=== PATIENT | male | born 1940 | race Caucasian/White ===

== ENCOUNTER 2017-04-03 06:13 | Day surgery (SDC) | payer OTHER ==
[~2017-04-03] VITALS: Ht 182.9 cm; Wt 69.4 kg
--- NOTE | ~2017-04-03 | O ---
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 PROCEDURE: Right lower lid ectropion repair with transconjunctival right lower lid and cheek lift. SURGEON: Andre Robertson M.D. LOBBY CONCIERGE: None. ANESTHESIA: MAC. COMPLICATIONS: None. 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 He presents today for a right lower lid ectropion repair combined with transconjunctival right lower lid and cheek lift in order to attempt to improve his ocular surface milieu. Informed consent was obtained to include but not limited to potential risk for loss of vision, bleeding, infection, failure to improve the problem, and the potential need for further surgery or treatment. DESCRIPTION OF PROCEDURE: The patient was taken to the operating room where 2% Xylocaine with epinephrine mixed with equal parts of 0.75% Marcaine with Wydase was administered transcutaneously and transconjunctivally to the right lateral canthus, the right lower lid, the right cheek and the right temporal fossa. The patient was subsequently prepped and draped in the usual sterile fashion. The right lateral canthus was then clamped with a Tay clamp. A sharp canthotomy and cantholysis was subsequently performed. Hemostasis was then re-achieved with diligent pinpoint monopolar cautery. A tarsal strip was then prepared laterally removing the lash bearing portion of the redundant lid margin [address] [address] OPERATIVE REPORT Name: HELDER PRESSLEY Room #: 150-11 [facility]#: [id number] Admission: 04/03/17 Attend Phys: Andre Robertson MD Discharge: Date of : 42 Report #: [id number] and the redundant tarsal plate. A transconjunctival incision was then made below the inferior border of the tarsal plate across the lower lid. The dissection was then carried down in a sharp fashion onto the premalar surface. Hemostasis was then re-achieved. The lower lid and cheek tissues were then elevated and resuspended with interrupted double armed chromic passes. This lifted the lower lid and cheek well. Attention was then returned to completion of the ectropion repair. The tarsal strip was secured to the internal portion of the lateral orbital tubercle with interrupted 5-0 Prolene sutures. The subcutaneous structures were then closed with multiple interrupted 6-0 plain gut sutures. The wound was then cleaned and dressed with erythromycin ophthalmic ointment. The patient was subsequently transported to the recovery area having tolerated the procedures well with no anesthetic or operative complications being noted. By: [id number] Andre Robertson MD /nt
[~2017-04-03 06:13] MED LIST: ARICEPT10 M1 PO; CRESTOR20 MG PO; ELIQUIS5 MG PO; PACERONE 200 M200 M1 PO
[2017-04-03 07:07] LABS: CREATININE 1.4 mg/dL (0.7-1.3); POTASSIUM 4.3 mmol/L (3.5-5.1)
[2017-04-03 07:13] LABS: ALBUMIN 4.4 g/dL (3.4-5.0); TOTAL BILIRUBIN 0.6 mg/dL (<0.1-1.0); TOTAL PROTEIN 8.4 g/dL (6.4-8.2)
[2017-04-03 11:38] VITALS: BP 159/60
== END 2017-04-03 08:30 | disposition home or self-care (01) ==
LOC: OR 06:13 → TBA 06:13 → OR 08:30
PROVIDERS: Anesthesiology
DX: H02.102 Unspecified ectropion of right lower eyelid (principal); H02.532 Eyelid retraction right lower eyelid; H02.202 Unspecified lagophthalmos right lower eyelid; H18.9 Unspecified disorder of cornea; I95.9 Hypotension, unspecified; I48.91 Unspecified atrial fibrillation; C93.10 Chronic myelomonocytic leukemia not having achieved remission; E78.00 Pure hypercholesterolemia, unspecified; N28.9 Disorder of kidney and ureter, unspecified; G47.33 Obstructive sleep apnea (adult) (pediatric); F32.89 Other specified depressive episodes; F17.220 Nicotine dependence, chewing tobacco, uncomplicated; F41.8 Other specified anxiety disorders; Z86.73 Personal history of transient ischemic attack (TIA), and cerebral infarction without residual deficits; Z90.49 Acquired absence of other specified parts of digestive tract; Z85.828 Personal history of other malignant neoplasm of skin; Z98.890 Other specified postprocedural states; Z88.6 Allergy status to analgesic agent; Z86.79 Personal history of other diseases of the circulatory system; Z79.899 Other long term (current) drug therapy; Z88.1 Allergy status to other antibiotic agents; Z88.8 Allergy status to other drugs, medicaments and biological substances
CPT/HCPCS: 50010; 50101; 50386; 50398; 51636; 56527; 56531; 62110; 62850; 70005

== ENCOUNTER → 2017-07-03 | Day surgery (SDC) | payer OTHER ==
[~2017-07-03] VITALS: Ht 182.9 cm; Wt 72.1 kg
[~2017-07-03] MED LIST changes: +ARICEPT10 MG PO; +IRON325 PO; +OMEPRAZOLE 20 M20 M1 PO
--- NOTE | ~2017-07-03 | O ---
[facility] [place] [address] OPERATIVE REPORT Name: HELDER PRESSLEY Room #: REG [facility].#: [id number] Admission: 07/03/17 Attend Phys: Andre Robertson MD Discharge: Date of : 42 Report #: [id number] THIS REPORT FOR: //name// CC: Dr. 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 PROCEDURE: Second stage Partida reconstruction, left lower lid. SURGEON: Andre Robertson M.D. REAL ESTATE LISTING CONSULTANT: None. ANESTHESIA: MAC. COMPLICATIONS: None. INDICATIONS FOR SURGERY: This 77-year-old gentleman has undergone resection of a squamous cell carcinoma of his left lower lid with a first stage Partida reconstruction on 05/01 of this year. He presents today for the planned second stage reconstruction of that left lower lid. Informed consent was obtained to include but not limited to potential risk for loss of vision, bleeding, infection, failure to improve the problem, and the potential need for further surgery or treatment. DESCRIPTION OF PROCEDURE: The patient was taken to the operating room where 2% Xylocaine with epinephrine mixed with equal parts 0.75% Marcaine with Wydase was administered transcutaneously and transconjunctivally to the left lower lid, the left upper lid, the left lateral canthus and the left medial canthus. The patient was subsequently prepped and draped in the usual sterile fashion. A groove director was then placed behind the island pedicle and a high ____ cautery used to separate 2 pedicles. The lower lid margin was first sharpened with a Cirilo scissor and the conjunctival flap rolled over that lid margin and secured with cautery. The left upper lid was then everted and that margin was smoothed as well with a Cirilo scissor and minimal high ____ cautery used to smooth that reconstruction to leave it in a rolled fashion and smooth up against his globe. The wounds were cleaned and dressed with erythromycin ointment. The [address] [address] OPERATIVE REPORT Name: HELDER PRESSLEY Room #: REG [facility]..#: [id number] Admission: 07/03/17 Attend Phys: Andre Robertson MD Discharge: Date of : 42 Report #: [id number] patient subsequently transported to the recovery area having tolerated the procedure well with no anesthetic or operative complications being noted. <ELECTRONICALLY SIGNED> By: Andre Robertson MD 07/07/17 [id number] Andre Robertson MD /nt
[2017-07-03 09:06] LABS: HEMATOCRIT 28.1 % (42.0-52.0); HEMOGLOBIN 9.8 gm/dL (14.0-18.0); MCH 38.2 pg (26.0-34.0); MCHC 34.8 g/dL (28.0-37.0); MCV 109.7 fL (80.0-100.0); RBC 2.56 mil/uL (4.50-6.00); WBC 2.7 thou/uL (4.0-11.0)
[2017-07-03 09:30] VITALS: BP 126/64
== END | disposition home or self-care (01) ==
LOC: OR 05:15
PROVIDERS: Ophthalmology
DX: C44.129 Squamous cell carcinoma of skin of left eyelid, including canthus (principal); G47.33 Obstructive sleep apnea (adult) (pediatric); E78.5 Hyperlipidemia, unspecified; I48.91 Unspecified atrial fibrillation; D64.9 Anemia, unspecified; F17.220 Nicotine dependence, chewing tobacco, uncomplicated; Z79.891 Long term (current) use of opiate analgesic; Z85.828 Personal history of other malignant neoplasm of skin; Z86.73 Personal history of transient ischemic attack (TIA), and cerebral infarction without residual deficits; Z90.49 Acquired absence of other specified parts of digestive tract
CPT/HCPCS: 50010; 50101; 50386; 50398; 62110; 62850; 70005